=== PATIENT | female | born 2000 | race Caucasian/White ===

== ENCOUNTER 2024-02-14 11:00 | Emergency (ER) | payer OTHER, SELFPAY ==
[2024-02-14 11:03] VITALS: BP 126/73; PULSE 73; TEMP 36.7; O2SAT 99; BMI 33.2
[2024-02-14 11:19] LABS: Bilirubin Urine NEGATIVE (NEGATIVE); Blood Urine NEGATIVE (NEGATIVE); Clarity Urine CLEAR (CLEAR); Color Urine YELLOW (YELLOW); Glucose Urine UA NEGATIVE (NEGATIVE); Ketones Urine NEGATIVE (NEGATIVE); Leukocyte Esterase Urine NEGATIVE (NEGATIVE); Nitrite Urine NEGATIVE (NEGATIVE); Protein Urine NEGATIVE (NEG/TRACE); Specific Gravity Urine 1.025 (1.005-1.025); Urine Microscopic Indicated NO
--- NOTE | 2024-02-14 11:21 | ED_ITS ---
HPI HPI - General Adult General Chief complaint: Headache Stated complaint: DIZZINESS/ GENERAL WEAKNESS Time Seen by Provider: 02/14/24 11:13 Source: patient Mode of arrival: walk-in History of Present Illness HPI narrative: Patient presenting to the emergency department for evaluation of not well. Patient states since Monday she feels if she is in a brain fog, feels like her brain is there, but then also feels like is not there.she states that she was on Abilify, her PCP switched around her dosing in time, she stopped taking it 4 to 5 days ago, and since that time has been feeling not well. Also complains of bodyaches and chills. No cough, nasal congestion, rhinorrhea, abdominal pain, hematuria, urgency, frequency, vaginal bleeding or discharge. States that she is not currently . No other complaints at this time Related Data Home Medications ?Medication ?Instructions ?Recorded ?Confirmed No Known Home Medications 02/14/24 02/14/24 Allergies Allergy/AdvReac Type Severity Reaction Status Date / Time sertraline [From Zoloft] AdvReac Severe hallucinati Verified 02/14/24 11:09 on Opioid HPI Opioid Management Most Recent Opioid Data: Last Pain Scale 8 02/14/24 11:36 Review of Systems ROS Narrative Negative unless otherwise stated in the HPI Exam Narrative Exam Narrative: General: NAD, AAOx3, no distress Eyes: PERRL, EOMI, lids/conjunctiva normal. HEENT: NCAT, mmm, TMs normal bilaterally. No lymphangitis/lymphedema, midline uvula, no exudates, normal tonsils without hypertrophy or exudates Neck: Supple, no LAD, negative Kernig/Brudzinski, non meningeal, no bruit Respiratory: respiratory effort normal, speaks in full sentences, no tripod position, no accessory muscle use. Lungs clear to auscultation without rhonchi, wheezes, rales Cardiac: Regular rate and rhythm, no edema, regular s1/s2, no m/g/r Abdomen: Soft, ND/NT. No evidence of fluid wave. No pulsatile masses on exam, rebound tenderness, Westfall sign or pain over Mcburney's point. Ext: No abnormal range of motion, no swelling. Skin: Warm, pink and dry. No rashes, dermatoses, petechiae or lesions. Neuro: Speech is clear and appropriate. Normal level of consciousness. Gait and coordination are normal. 5/5 strength in all extremities. Psych: Normal mood and affect. Judgement/competence is appropriate Constitutional Vital Signs, click to edit/add: Last Vital Signs Temp 98.1 F 02/14/24 11:03 Pulse 73 02/14/24 11:03 Resp 16 02/14/24 11:03 BP 126/73 02/14/24 11:03 Pulse Ox 99 02/14/24 11:03 O2 Del Method Room Air 02/14/24 11:03 Course Vital Signs Vital signs: Vital Signs Temperature 98.1 F 02/14/24 11:03 Pulse Rate 73 02/14/24 11:03 Respiratory Rate 16 02/14/24 11:03 Blood Pressure 126/73 02/14/24 11:03 Pulse Oximetry 99 02/14/24 11:03 Oxygen Delivery Method Room Air 02/14/24 11:03 Temperature 98.1 F 02/14/24 11:03 Pulse Rate 73 02/14/24 11:03 Respiratory Rate 16 02/14/24 11:03 Blood Pressure 126/73 02/14/24 11:03 Pulse Oximetry 99 02/14/24 11:03 Oxygen Delivery Method Room Air 02/14/24 11:03 Medical Decision Making MDM Narrative Medical decision making narrative: [facility] Patient with history as above presented with brain fog, lightheaded. History obtained from patient. Patient was nontoxic, stable. Ambulatory. Exam as above. EKG reviewed. Labs reviewed. Reviewed external records. Differential diagnosis considered. Overall presentation is consistent with hypomagnesemia, lightheaded. Was treated with IV fluids, magnesium with full resolution of symptoms Advanced guidance has been given. Vss, pex is benign at this time. Pt to fu with pcp 1-2 days for reeval, rter should sx worsen, persist or become worrysome in any way. All incidental laboratory studies, EKG, radiologic findings have been noted and discussed with patient. Patient was reevaluated with a benign exam at this time. Pt expressed understanding and agreement with plan of care at this time. Will fu as planned. Pt stable for discharge. Medical Records Medical records reviewed: Yes I reviewed the patient's medical records Lab Data Lab results reviewed: Yes I reviewed the patient's lab results Labs: Lab Results 02/14/24 02/14/24 02/14/24 Range/Units 11:08 11:30 11:31 WBC 7.0 (4.0-11.0) 10^3/uL RBC 4.94 (4.20-5.40) 10^6/uL Hgb 13.7 (12.0-16.0) g/dL Hct 41.6 (36.0-48.0) % MCV 84.2 (81.0-99.0) fL MCH 27.7 (26.7-34.0) pg MCHC 32.9 (29.9-35.2) g/dL RDW 12.4 (11.0-15.0) % Plt Count 282 (150-450) 10^3/uL MPV 9.9 (9.5-13.5) fL Neut % (Auto) 61.0 (43.0-75.0) % Lymph % (Auto) 30.3 (20.5-60.0) % Towns % (Auto) 6.3 (1.7-12.0) % Eos % (Auto) 1.6 (0.9-7.0) % Baso % (Auto) 0.7 (0.2-2.0) % Neut # (Auto) 4.2 (1.4-6.5) 10^3/uL Lymph # (Auto) 2.1 (1.2-3.8) 10^3/uL Towns # (Auto) 0.4 (0.3-0.8) 10^3/uL Eos # (Auto) 0.1 (0.0-0.7) 10^3/uL Baso # (Auto) 0.1 (0.0-0.1) 10^3/uL Abs Immat Gran (auto) 0.01 (0.00-0.03) 10^3/uL Imm/Tot Granulo (auto) 0.1 (0.0-0.5) % Sodium 141 (136-145) mmol/L Potassium 3.8 (3.5-5.1) mmol/L Chloride 104 (98-107) mmol/L Carbon Dioxide 26.9 (21.0-32.0) mmol/L Anion Gap 13.9 BUN 8.0 (7.0-18.0) mg/dL Creatinine 0.77 (0.55-1.02) mg/dL Est GFR ( Amer) >60 (>=60) Est GFR (Non-Af Amer) >60 (>=60) BUN/Creatinine Ratio 10.4 Glucose 102 (74-106) mg/dL Calcium 8.9 (8.5-10.1) mg/dL Magnesium 1.7 L (1.8-2.4) mg/dL TSH & Free T4 Interp 1.255 (0.358-3.740) uIU/mL Urine Color Yellow (YELLOW) Urine Clarity Clear (CLEAR) Urine pH 6.0 (5.0-9.0) Ur Specific [place] 1.025 (1.005-1.025) Urine Protein Negative (NEG/TRACE) mg/dL Urine Glucose (UA) Negative (NEGATIVE) mg/dL Urine Ketones Negative (NEGATIVE) mg/dL Urine Occult Blood Negative (NEGATIVE) Urine Nitrite Negative (NEGATIVE) Urine Bilirubin Negative (NEGATIVE) Urine Urobilinogen 1.0 (0.2-1.0) EU/dL Ur Leukocyte Esterase Negative (NEGATIVE) Urine HCG, Qual Negative (NEGATIVE) Influenza Type A Ag Negative Influenza Type B Ag Negative SARS-CoV-2 Ag (CV2AG) Negative (NEGATIVE) Discharge Plan Discharge Stand Alone Forms: Portal Instructions Chief Complaint: Headache Clinical Impression: Light-headed, Hypomagnesemia Patient Disposition: Home, Self-Care Time of Disposition Decision: 12:15 Prescriptions / Home Meds: No Action No Known Home Medications Print Language: Brazilian Instructions: Hypomagnesemia (ED), Lightheadedness (ED) Additional Instructions: Follow-up with your PCP in the next 1 to 2 days. Return to the emergency department should symptoms worsen or become worrisome in any way. Referrals: JEANNINE CARDENAS [Physician] - 1 week
[2024-02-14 11:22] LABS: HCG Qualitative Urine* NEGATIVE (NEGATIVE); Internal Control Within Normal Limits
[2024-02-14] MEDS: 0.9 % SODIUM CHLORIDE 1,000 ML 999 ML IV (11:35)
[2024-02-14 11:38] LABS: Basophils Absolute Auto 0.1 10^3/uL (0.0-0.1); Basophils Percent Auto 0.7 % (0.2-2.0); Eosinophils Absolute Auto 0.1 10^3/uL (0.0-0.7); Eosinophils Percent Auto 1.6 % (0.9-7.0); Hematocrit 41.6 % (36.0-48.0); Hemoglobin 13.7 g/dL (12.0-16.0); Immature Granulocytes Abs Auto 0.01 10^3/uL (0.00-0.03); Immature Granulocytes Pct Auto 0.1 % (0.0-0.5); Lymphocytes Absolute Auto 2.1 10^3/uL (1.2-3.8); Lymphocytes Percent Auto 30.3 % (20.5-60.0); Mean Corpuscular HGB Conc 32.9 g/dL (29.9-35.2); Mean Corpuscular Hemoglobin 27.7 pg (26.7-34.0); Mean Corpuscular Volume 84.2 fL (81.0-99.0); Mean Platelet Volume 9.9 fL (9.5-13.5); Monocytes Absolute Auto 0.4 10^3/uL (0.3-0.8); Monocytes Percent Auto 6.3 % (1.7-12.0); Neutrophils Absolute Auto 4.2 10^3/uL (1.4-6.5); Platelet Count 282 10^3/uL (150-450); Red Blood Count 4.94 10^6/uL (4.20-5.40); Red Cell Distribution Width 12.4 % (11.0-15.0)
[2024-02-14 11:51] LABS: Influenza Virus A Antigen Negative; Influenza Virus B Antigen Negative; Internal Control Within Normal Limits; SARS-CoV-2 Ag NEGATIVE (NEGATIVE)
[2024-02-14 12:01] LABS: Anion Gap 13.9; BUN Creatinine Ratio 10.4; Calcium 8.9 mg/dL (8.5-10.1); Carbon Dioxide 26.9 mmol/L (21.0-32.0); Chloride 104 mmol/L (98-107); Estimated GFR (African America >60 (>=60); Estimated GFR (Non-African Ame >60 (>=60); Glucose 102 mg/dL (74-106); Magnesium 1.7 mg/dL (1.8-2.4); Potassium 3.8 mmol/L (3.5-5.1); Sodium 141 mmol/L (136-145); TSH W/ REFLEX FT4 1.255 uIU/mL (0.358-3.740)
[2024-02-14] MEDS: MAGNESIUM SULFATE/D5W 1 GM/100 ML PREMIX IV (12:20)
[2024-02-14 12:55] VITALS: BP 124/74; PULSE 50; O2SAT 99
== END 2024-02-14 12:56 | disposition home or self-care (01) ==
PROVIDERS: Emergency Provider Emergency Medicine
DX: R42 Dizziness and giddiness (principal); E83.42 Hypomagnesemia; Z20.822 Contact with and (suspected) exposure to COVID-19
CPT/HCPCS: 36415; 80048; 81003; 83735; 84443; 84703; 85025; 87804; 87811; 96365; 99284; J3475